=== PATIENT | male | born 1945 | race Caucasian/White ===

== ENCOUNTER 2017-06-26 11:26 | Day surgery (SDC) | payer OTHER ==
[2017-06-25 10:41] VITALS: BMI 27.9
[2017-06-26 12:50] LABS: Hemoglobin 15.9 g/dL (14.0-18.0)
[2017-06-26 13:04] LABS: Anion Gap 11 mmol/L (10-20); BUN (Urea Nitrogen) 18 mg/dL (8.4-25.7); Calc. Creatinine Clearance 86 mL/min (70-130); Calcium 10.1 mg/dL (7.8-10.44); Carbon Dioxide 28 mmol/L (23-31); Chloride 105 mmol/L (98-107); Estimated GFR-MDRD 66; Glucose 98 mg/dL (80-115); Potassium 4.3 mmol/L (3.5-5.1); Sodium 140 mmol/L (136-145)
[2017-06-26] MEDS ORDERED: Bacitracin Zinc Ointment 30 gm TUBE ONE (14:27)
[2017-06-26] MEDS ORDERED: Oxymetazoline HCl 0.05% ( 15 ML ) ONE (14:27)
[2017-06-26] MEDS ORDERED: Lidocaine 1% w/Epinephrine 1:200K 30 ML VIAL ONE (14:27)
--- NOTE | 2017-06-27 13:34 | OP ---
PREOPERATIVE DIAGNOSES: Profound septal deformity, hypertrophic inferior turbinates. POSTOPERATIVE DIAGNOSES: Profound septal deformity, hypertrophic inferior turbinates. PROCEDURES PERFORMED: 1. Septoplasty. 2. Bilateral nasal endoscopy with submucosal resection of inferior turbinates. PROCEDURE IN DETAIL: After consent was obtained, the patient was identified, brought to the operatin g room, and placed on the operating room table in the supine position. Consent was obtained, notifyi ng the patient of the possibility of additional infections, bleeding, brain injury, and eye/orbital i njury. The patient was placed on the operating room table, and general endotracheal anesthesia and intravenous access was obtained. The patient was then positioned, prepped and draped for endoscopic sinus surgery. Nasal preparation included trimming nasal vestibular hairs and spraying in topical Af rin. We then placed Afrin topical solution on nasal pledgets and strategically located them intranas ally. The perinasal mucosa was injected with 1% lidocaine with 1:100,000 epinephrine in the submucop erichondrial plane of the septum, lateral nasal wall, and anterior to the uncinate. The patient was then prepped and draped in a sterile fashion and positioned for endoscopic sinus surgery. (Outfracture of the Inferior Turbinates) The inferior turbinates were visualized under endoscopic visualization and outfractured with the elev ator. The inferolateral edge of the inferior turbinate was then cauterized along its length with the suction cautery without difficulty. (Outfracture & Cautery of the Inferior Turbinates) The inferior turbinates were visualized with a 0-degree endoscope and outfractured with a [place] eleva tor. The inferior medial aspect was cauterized with the electrocautery. Hemostasis was obtained . After adequate airway was established, we turned our attention to the contralateral side and used a s imilar procedure. Again, a [place] elevator was used to outfracture inferior turbinates under endoscop ic visualization. With a suction cautery, the free inferior medial aspect was cauterized under direc t visualization along the length of the inferior turbinate. (Septoplasty) After local anesthesia was infiltrated into the submucoperichondrial plane, a standard [place] incisi on was made with a #15 blade down to the level of the septal cartilage. The caudal elevator was used to elevate the mucoperichondrium from the underlying cartilage. We then proceeded beyond the bony c artilaginous junction and elevated the bony periosteum as well. Great attention was paid to the spur to prevent rent formation in the septal flap. A transcartilaginous incision was then made, while pre serving an adequate dorsal and caudal cartilaginous strut for tip support. The deformed cartilage wa s removed and disarticulated from the bony cartilaginous junction and maxillary crest. This was plac ed in saline and would later be crushed and returned to the mucoperichondrial envelope. We then elev ated the contralateral periosteum from the bony cartilaginous region and removed the deformed portion s of the bone and bony spurs. The cartilage was then crushed and placed back into the mucoperichondr ial envelope and the mucosa was re-approximated with a quilting stitch composed of rapidly absorbent gut suture. The [place] incision was also closed with interrupted gut suture. At the completion of the case, [place] splints were placed and suture secured to the caudal septum. At this point, we then turned our attention to the contralateral side and proceeded with endoscopic s inus surgery. At the completion of the case, [place] keel splints were placed in the ethmoid cavities after the ethmoi dectomy. There were no complications. The patient tolerated the procedure well and was discharged t o the recovery room in stable condition prior to return to the preoperative Day Stay with [facility]. Prescriptions for pain medication and antibiotics were provided. The patient received intramuscular Depo-Medrol during the case.
--- NOTE | 2017-08-30 13:58 | EKG ---
Test Reason : PREOP Blood Pressure : / mmHG Vent. Rate : 059 BPM Atrial Rate : 059 BPM P-R Int : 200 ms QRS Dur : 094 ms QT Int : 426 ms P-R-T Axes : 046 069 031 degrees QTc Int : 421 ms Sinus bradycardia Otherwise normal ECG When compared with ECG of 26-DEC-2015 15:55, No significant change was found Confirmed by JORJE CHAKRABORTY MD ([id number] on 08/30/2017 1:57:46 PM Referred By: ALYSON Confirmed By:JORJE CHAKRABORTY MD
== END 2017-06-26 15:45 | disposition home or self-care (01) ==
LOC: SDC 11:26
PROVIDERS: ATTEND Specialist
PROC: 09BL8ZZ Excision of Nasal Turbinate, Via Natural or Artificial Opening Endoscopic (ICD-10-PCS; principal; 2017-06-26)
PROC: 09RM07Z Replacement of Nasal Septum with Autologous Tissue Substitute, Open Approach (ICD-10-PCS; principal; 2017-06-26)
DX: J34.2 Deviated nasal septum (principal); J34.3 Hypertrophy of nasal turbinates; J34.89 Other specified disorders of nose and nasal sinuses; I10 Essential (primary) hypertension; Z79.82 Long term (current) use of aspirin; Z79.899 Other long term (current) drug therapy; Z90.49 Acquired absence of other specified parts of digestive tract; Z98.890 Other specified postprocedural states
CPT/HCPCS: 80048; 85014; 85018; 93005; 93010; J3490

== ENCOUNTER 2017-07-10 10:49 | Day surgery (SDC) | payer OTHER ==
[2017-07-09 10:48] VITALS: BMI 27.9
[~2017-07-10 10:49] MED LIST: Dexamethasone 20 MG/5 ML VIAL ONE; Glycopyrrolate 0.2 MG/ML 5 ML SYRINGE ONE; Ondansetron PF 4 MG/2 ML Vial ONE; PROPOFOL 200 MG/20 ML VIAL ONE
[2017-07-10] MEDS ORDERED: Oxymetazoline HCl 0.05% ( 15 ML ) ONE ×2 (14:13→16:36)
[2017-07-10] MEDS ORDERED: Bacitracin Zinc Ointment 30 gm TUBE ONE (16:36)
[2017-07-10] MEDS ORDERED: Fentanyl 250 MCG/5 ML VIAL ONE (16:36)
[2017-07-10] MEDS ORDERED: Lidocaine 1% w/Epinephrine 1:200K 30 ML VIAL ONE (16:36)
[2017-07-10] MEDS ORDERED: Fentanyl 100 MCG/2 ML VIAL ONE (18:00)
[2017-07-10] MEDS ORDERED: Hydrocodone-Acetamin 15 ML UDCUP ONE (18:34)
--- NOTE | 2017-07-10 22:19 | OP ---
PREOPERATIVE DIAGNOSES: Deviated septum, hypertrophic inferior turbinates. POSTOPERATIVE DIAGNOSES: Deviated septum, hypertrophic inferior turbinates. PROCEDURES PERFORMED: 1. Septoplasty. 2. Bilateral nasal endoscopy with submucosal resection of inferior turbinates. PROCEDURE IN DETAIL: After consent was obtained, the patient was identified, brought to the operatin g room, and placed on the operating room table in the supine position. Consent was obtained, notifyi ng the patient of the possibility of additional infections, bleeding, brain injury, and eye/orbital i njury. The patient was placed on the operating room table, and general endotracheal anesthesia and intravenous access was obtained. The patient was then positioned, prepped and draped for endoscopic sinus surgery. Nasal preparation included trimming nasal vestibular hairs and spraying in topical Af rin. We then placed Afrin topical solution on nasal pledgets and strategically located them intranas ally. The perinasal mucosa was injected with 1% lidocaine with 1:100,000 epinephrine in the submucop erichondrial plane of the septum, lateral nasal wall, and anterior to the uncinate. The patient was then prepped and draped in a sterile fashion and positioned for endoscopic sinus surgery. Septoplasty: After local anesthesia was infiltrated into the submucoperichondrial plane, a standard [place] incision was made with a #15 blade down to the level of the septal cartilage. The caudal dean vator was used to elevate the mucoperichondrium from the underlying cartilage. We then proceeded bey ond the bony cartilaginous junction and elevated the bony periosteum as well. Great attention was pa id to the spur to prevent rent formation in the septal flap. A transcartilaginous incision was then m samuel, while preserving an adequate dorsal and caudal cartilaginous strut for tip support. The deforme d cartilage was removed and disarticulated from the bony cartilaginous junction and maxillary crest. This was placed in saline and would later be crushed and returned to the mucoperichondrial envelope. We then elevated the contralateral periosteum from the bony cartilaginous region and removed the de formed portions of the bone and bony spurs. The cartilage was then crushed and placed back into the mucoperichondrial envelope and the mucosa was re-approximated with a quilting stitch composed of rapi dly absorbent gut suture. The [place] incision was also closed with interrupted gut suture. At the completion of the case, [place] splints were placed and suture secured to the caudal septum. Bilateral nasal endoscopy with submucosal resection of inferior turbinates: With the 0-degree endosc ope, the patient underwent systematic nasal endoscopy. There were no suspicious internasal masses or lesions identified. We then focused our attention to the osteomeatal complex region under the middl e turbinate. The inferior turbinates were visualized under endoscopic visualization and outfractured with the elev ator. The inferolateral edge of the inferior turbinate was then cauterized along its length with the suction cautery without difficulty. The inferior turbinates were visualized with a 0-degree endoscope and outfractured with a [place] eleva tor. The inferior medial aspect was cauterized with the electrocautery. Hemostasis was obtained . After adequate airway was established, we turned our attention to the contralateral side and used a s imilar procedure. Again, a [place] elevator was used to outfracture inferior turbinates under endoscop ic visualization. With a suction cautery, the free inferior medial aspect was cauterized under direc t visualization along the length of the inferior turbinate. At this point, we then turned our attention to the contralateral side and proceeded with endoscopic s inus surgery. At the completion of the case, [place] keel splints were placed in the ethmoid cavities after the ethmoi dectomy. There were no complications. The patient tolerated the procedure well and was discharged t o the recovery room in stable condition prior to return to the preoperative Day Stay with [facility]. Prescriptions for pain medication and antibiotics were provided. The patient received intramuscular Depo-Medrol during the case. FINDINGS: Profound septal deformity and hypertrophic turbinates.
== END 2017-07-10 19:40 | disposition home or self-care (01) ==
LOC: SDC 10:49
PROVIDERS: ATTEND Specialist
PROC: 09RM07Z Replacement of Nasal Septum with Autologous Tissue Substitute, Open Approach (ICD-10-PCS; principal; 2017-07-10)
PROC: 09TL8ZZ Resection of Nasal Turbinate, Via Natural or Artificial Opening Endoscopic (ICD-10-PCS; principal; 2017-07-10)
DX: J34.2 Deviated nasal septum (principal); J34.3 Hypertrophy of nasal turbinates; J34.89 Other specified disorders of nose and nasal sinuses; I10 Essential (primary) hypertension; Z79.82 Long term (current) use of aspirin; Z79.899 Other long term (current) drug therapy
CPT/HCPCS: 96374; J1100; J2405; J2704; J3010

== ENCOUNTER 2017-12-21 00:11 | Observation (INO) | payer MEDICARE, OTHER ==
[2017-12-21] MEDS ORDERED: Nitroglycerin 2% Ointment 1 INCH/1 GM Packet ONE (01:03)
[2017-12-21 01:08] LABS: #Basophils 0.1 thou/uL (0.0-0.2); #Eosinphils 0.3 thou/uL (0.0-0.7); #Lymphocytes 1.7 thou/uL (1.20-3.40); #Monocytes 0.7 thou/uL (0.11-0.59); #Neutrophils 4.3 thou/uL (1.40-6.50); %Basophils 1.1 % (0.0-1.0); %Eosinophils 4.6 % (0.0-10.0); %Monocytes 9.3 % (0.0-10.0); %Neutrophils 60.9 % (42.0-75.0); Hemoglobin 13.8 g/dL (14.0-18.0); Mean Corpuscular HGB CONC 34.7 g/dL (32.0-36.0); Mean Corpuscular Hemoglobin 29.6 pg (27.0-31.0); Mean Corpuscular Volume 85.4 fL (78.0-98.0); Platelet Count 210 thou/uL (130-400); RBC Distribution Width 12.1 % (11.5-14.5); Red Blood Cell (RBC) Count 4.65 mill/uL (4.70-6.10)
[2017-12-21 01:28] LABS: ALT (SGPT) 27 U/L (8-55); AST (SGOT) 19 U/L (5-34); Albumin 4.1 g/dL (3.4-4.8); Alkaline Phosphatase 77 U/L (40-150); Anion Gap 15 mmol/L (10-20); BUN (Urea Nitrogen) 18 mg/dL (8.4-25.7); Bilirubin, Total 0.9 mg/dL (0.2-1.2); CK (CPK) 67 U/L (30-200); Calc. Creatinine Clearance 0 mL/min (70-130); Calcium 9.6 mg/dL (7.8-10.44); Carbon Dioxide 23 mmol/L (23-31); Chloride 108 mmol/L (98-107); Estimated GFR-MDRD 66; Globulin 2.6 g/dL (2.4-3.5); Glucose 130 mg/dL (80-115); Potassium 3.8 mmol/L (3.5-5.1); Protein, Total 6.7 g/dL (5.8-8.1); Sodium 142 mmol/L (136-145)
[2017-12-21 01:31] LABS: CKMB 2.6 ng/mL (0-6.6); Troponin I Less than 0.010 ng/mL (< 0.028)
[2017-12-21] MEDS ORDERED: Acetaminophen 325 MG TAB PO PRN ×2 (03:50→08:14)
[2017-12-21] MEDS ORDERED: Ondansetron ODT 4 MG TAB SL PRN (03:50)
[2017-12-21] MEDS ORDERED: Ondansetron HCl/PF 4 MG/2 ML Vial IVP PRN (03:50)
[2017-12-21 04:12] VITALS: BMI 28.3
[2017-12-21 05:03] LABS: Troponin I 0.026 ng/mL (< 0.028)
[2017-12-21 07:49] LABS: Troponin I Less than 0.010 ng/mL (< 0.028)
[2017-12-21] MEDS ORDERED: Nitroglycerin 0.4 MG TAB (25 Tab Bottle) PO PRN (08:14)
[2017-12-21] MEDS ORDERED: Bisacodyl 5 MG TAB PO PRN (08:14)
[2017-12-21 08:40] VITALS: TEMP 97.5
[2017-12-21] MEDS ORDERED: Amlodipine 5 MG TAB PO SCH (09:00)
--- NOTE | 2017-12-21 11:08 | RAD ---
PORTABLE CHEST 1 VIEW: DATE: 12/21/17. TIME: 1:07 a.m. HISTORY: Chest pain. FINDINGS: Comparison is made with the exam of 12/16/15. The heart size is normal. The aorta is tortuous. The lungs are expanded without focal areas of cons olidation, pneumothorax, or pleural effusions. IMPRESSION: No acute process. POS: [facility]
[2017-12-21 11:16] VITALS: BP 154/74
--- NOTE | 2017-12-21 12:21 | CT ---
CT PULMONARY ANGIOGRAM WITH IV COTNRAST AND 3D POSTPROCESSING: HISTORY: Chest pain and hypertension. FINDINGS: There is good contrast opacification of the pulmonary arterial vasculature without filling defects to suggest pulmonary embolism. No thoracic aortic aneurysm or dissection is seen. No pleural or peric ardial effusions are identified. No pneumothoraces, focal areas of consolidation, or lung masses are identified. There are degenerative changes in the spine. There is a 4 mm parenchymal nodule in the left lower lobe. A few lung cysts are seen in the right lower lobe. IMPRESSION: 1. No CT evidence of pulmonary embolism. 2. A 4 mm left lower lobe lung nodule. A followup with LDCT is recommended in 12 months. CODE T POS: [facility]
[2017-12-21] MEDS ORDERED: ISOVUE-370 76%-LOCM 1 ML ONE (15:03)
--- NOTE | 2017-12-21 15:08 | SS ---
DATE OF ADMISSION: 12/21/2017 DATE OF DISCHARGE: 12/21/2017 PRIMARY CARE PROVIDER, Dr. Devyn Brooks. CHIEF COMPLAINT: Chest pain. SUBJECTIVE: Mr. Partida is a pleasant 72-year-old gentleman who was seen at [facility] on 12/21/2017. HISTORY OF PRESENT ILLNESS: He reports that he went to bed around 10:30 p.m. yesterday. Around 10:50 p.m. he developed pain in his chest. He describes it as retrosternal, tightness like, nonradiating, 10/10 at its worst, accompanied by shortness of breath, not accompanied by diaphoresis or lightheadedness. It was radiating to his left shoulder. EMS was called. He was found to have systolic blood pressure of 116. He was administered nitrates, with some relief. Prior to EMS arrival, his blood pressure was reported at 225/101. He reports that he has been having a difficult time keeping his blood pressure under control. He mainly reports the blood pressures spikes. He has undergone workup to rule out adrenal causes, according to the patient. Currently, he is chest pain free. REVIEW OF SYSTEMS: All other systems reviewed and found to be negative. PAST MEDICAL HISTORY: Hypertension, gout, gastroesophageal reflux disease, dyslipidemia, hard of hearing. PAST SURGICAL HISTORY: Cardiac catheterization on 12/27/2015, which did not show any significant disease. FAMILY HISTORY: His father from myocardial infarction. SOCIAL HISTORY: The patient denies tobacco use, alcohol use or recreational drug use. CODE STATUS: I discussed his code status. He is FULL CODE. ALLERGIES: No known drug allergies. MEDICATIONS: Amlodipine 5 mg daily, aspirin 81 mg daily, Lipitor 20 mg daily, losartan 50 mg daily, Protonix 40 mg daily. PHYSICAL EXAMINATION: GENERAL: Mr. Partida is awake and alert, not in acute distress. VITAL SIGNS: Blood pressure is 141/74, pulse 56, respiratory rate 18, and oxygen saturation 94% on room air. He is afebrile. EYES: No scleral icterus. No conjunctival pallor. ENT: Moist mucosal membranes, no oropharyngeal erythema or exudates. NECK: Supple, nontender. Trachea is midline. RESPIRATORY: Accessory muscles of breathing are not active. Chest wall movements are symmetric bilaterally. LUNGS: Clear to auscultation without wheeze, rhonchi or crepitations. CARDIOVASCULAR: S1 and S2 are heard, regular. Peripheral pulses palpable. No carotid bruit, no pericardial rub. ABDOMEN: Soft, nontender, bowel sounds are heard, no hepatomegaly. No splenomegaly. NEUROLOGIC: Cranial nerves II-XII intact. Deep tendon reflexes are 2+. MUSCULOSKELETAL: Power is 5/5 in all 4 extremities. SKIN: No rashes or subcutaneous nodules. LYMPHATIC: No cervical lymphadenopathy. PSYCHIATRIC: Normal mood, normal affect. The patient is oriented to person, place, and time. LABORATORY DATA: Mr. Partida' labs and investigations were reviewed. I reviewed his electrocardiogram, which shows sinus bradycardia, no ST changes to suggest an acute coronary syndrome. I also reviewed his chest x-ray, which does not show any pulmonary infiltrates. He has normal white count, normocytic anemia with hemoglobin 13.8, normal platelet count, normal sodium, normal potassium, normal creatinine, normal troponin I x3 and normal LFTs. ASSESSMENT AND PLAN, HOSPITAL COURSE: Mr. Partida is a pleasant 72-year-old gentleman who was seen at [facility] on 12/21/2017. His problem list includes: 1. Chest pain: He was monitored on telemetry. He had CT angiogram of the chest, which did not show any pulmonary embolism. He does have a 4 mm nodule in the left lower lobe. Radiologist recommends follow up CT scan in 12 months. He will be advised to follow up with his primary care provider for the same. 2. Hypertensive urgency: His blood pressures have improved since coming to the hospital. He will be advised to follow up with his primary care provider for management of hypertension. He will be advised to check his blood pressure and heart rate 3 times a day and shows readings to his primary care provider. 3. Dyslipidemia: The patient to continue statin at home. 4. Gastroesophageal reflux disease. The patient to continue PPI at home. He has also been advised to follow up with his pressure tank operator to rule out gastrointestinal causes for chest discomfort. Many thanks for allowing me to participate in your patient's care. Please feel free to contact me with any questions or concerns. LEVEL OF RISK: High. LEVEL OF COMPLEXITY: High. MTDD
--- NOTE | 2017-12-21 15:35 | CON ---
DATE OF CONSULTATION: 12/21/2017 REASON FOR CONSULTATION: Chest pain. HISTORY OF PRESENT ILLNESS: Mr. Uriostegui is a very pleasant 72-year-old white gentleman who comes to [facility] for chest pain. He was at home. He did a lot of weed eating the last couple days and wa s having right and left-sided chest pain. He checked his blood pressure and it was a little higher t pan normal in the 140s, but then he did not feel well. Later that night and checked it again, it was 225/100, so EMS was called. He was given a sublingual nitro and his blood pressure went down to 140 s/80s. He was admitted for rule out. He is a patient of Dr. Meza. He had a heart catheterizat ion back in 12/2015, just 2 years ago in the setting of ongoing episodes of chest pain with normal st ress as he was found to have no significant coronary artery disease. PAST MEDICAL HISTORY: 1. Hypertension. 2. Gout. 3. Normal coronaries 2 years ago. PAST SURGICAL HISTORY: None. SOCIAL HISTORY: No alcohol, tobacco or drugs. OUTPATIENT MEDICATIONS: 1. Amlodipine 5 mg a day. 2. Pantoprazole 40 mg a day. 3. Losartan 50 mg q.p.m. 4. Atorvastatin 10 mg q.p.m. 5. Aspirin 81 a day. ALLERGIES: No known drug allergies. REVIEW OF SYSTEMS: Twelve point review of systems was done and is all negative unless stated in the history of present illness. PHYSICAL EXAMINATION: VITAL SIGNS: Temperature 97.5, pulse 56, respiration rate 18, satting 94% on room air, blood pressur e 141/74. GENERAL: Awake, alert, oriented x3, in no distress. HEENT: Normocephalic, atraumatic. NECK: Supple. LUNGS: Clear. CARDIOVASCULAR: S1, S2, no S3, S4, no murmurs or rubs. ABDOMEN: Soft, otherwise. EXTREMITIES: No edema. SKIN: Warm and dry. LABORATORY WORK: Reviewed. Troponin is negative x3. CBC and CMP are unremarkable. ASSESSMENT AND PLAN: 1. Hypertension emergency. Blood pressure better controlled. We will provide with p.r.n. hydralazi ne in case his blood pressure above 170, but his blood pressure at home is actually in the most of e time. 2. Chest pain: Most likely related to high blood pressure versus just doing all the weed eating rec ently and that this be musculoskeletal chest. He had a negative catheterization 2 years ago and has negative troponins. EKG is unremarkable as well Reassurance. 3. Hypertension: controlled at home on current regimen. No changes for now except for p.r.n. hydra lazine for SBP above 170. Thank you for letting us participate in the care of your patient. We will sign off. Please call [facility] any question.
[2017-12-21] MEDS ORDERED: Atorvastatin Calcium 20 MG TAB PO SCH (21:00)
[2017-12-21] MEDS ORDERED: Losartan 25 MG TAB PO SCH (21:00)
== END 2017-12-21 15:04 | disposition home or self-care (01) ==
LOC: ERS 00:11 → 2SW 03:32
PROVIDERS: ADMIT Internal Medicine; ATTEND Internal Medicine
DX: R07.2 Precordial pain (principal); I16.0 Hypertensive urgency; I16.1 Hypertensive emergency; I10 Essential (primary) hypertension; M10.9 Gout, unspecified; K21.9 Gastro-esophageal reflux disease without esophagitis; E78.5 Hyperlipidemia, unspecified; Z79.82 Long term (current) use of aspirin; Z79.899 Other long term (current) drug therapy
CPT/HCPCS: 36415; 71045; 71275; 80053; 82553; 84484; 85025; 93005; 94760; G0378

== ENCOUNTER 2025-01-30 11:21 | Observation (INO) | payer MEDICARE, OTHER ==
[~2025-01-30 11:21] MED LIST changes: -Dexamethasone 20 MG/5 ML VIAL ONE; -Glycopyrrolate 0.2 MG/ML 5 ML SYRINGE ONE; +Iopamidol-370 76% 500 ML MDV (1 ML CHARGE) ONE; -Ondansetron PF 4 MG/2 ML Vial ONE; -PROPOFOL 200 MG/20 ML VIAL ONE
[2025-01-30 11:56] LABS: #Basophils 0.04 10x3/uL (0.0-0.2); #Eosinophils 0.34 10x3/uL (0.0-0.7); #Monocytes 0.59 10x3/uL (0.11-0.59); #Neutrophils 5.15 10x3/uL (1.40-6.50); %Basophils 0.5 % (0.0-1.0); %Eosinophils 4.1 % (0.0-10.0); %Lymphocytes 26.2 % (21.0-51.0); %Monocytes 7.1 % (0.0-10.0); %Neutrophils 61.6 % (42.0-75.0); Hematocrit 43.9 % (42.0-52.0); Hemoglobin 14.7 g/dL (14.0-18.0); Mean Corpuscular Hemoglobin 28.2 pg (27.0-31.0); Mean Corpuscular Volume 84.3 fL (78.0-98.0); Platelet Count 242 10x3/uL (130-400); Red Blood Cell (RBC) Count 5.21 mill/uL (4.70-6.10); White Blood Cell (WBC) Count 8.35 10x3/uL (4.8-10.8)
[2025-01-30] MEDS ORDERED: Aspirin Chewable 81 MG TAB ONE (11:57)
[2025-01-30 12:29] LABS: ALT (SGPT) 24 U/L (Less than 45); AST (SGOT) 25 U/L (11-34); Albumin 4.0 g/dL (3.1-4.5); Alkaline Phosphatase 72 U/L (40-110); Anion Gap 13 mmol/L (10-20); BUN (Urea Nitrogen) 18 mg/dL (8.4-25.7); Bilirubin, Total 1.1 mg/dL (0.3-1.2); Calc. Creatinine Clearance 0 mL/min (70-130); Calcium 9.1 mg/dL (7.8-10.44); Carbon Dioxide 21 mmol/L (23-31); Chloride 109 mmol/L (98-107); Globulin 2.9 g/dL (2.4-3.5); Glucose 101 mg/dL (83-110); Lipase 20 U/L (8-78); Potassium 3.9 mmol/L (3.5-5.1); Sodium 139 mmol/L (136-145)
[2025-01-30 16:17] VITALS: BMI 28.9
[2025-01-30] MEDS ORDERED: Ondansetron PF 4 MG/2 ML Vial IVP PRN (16:45)
[2025-01-30] MEDS ORDERED: Melatonin 3 MG TAB PO PRN (16:45)
[2025-01-30] MEDS ORDERED: Electrolyte Replacement Protocol 1 EACH FS PRN (16:45)
[2025-01-30] MEDS ORDERED: Nitroglycerin 0.4 MG TAB (25 Tab Bottle) SL PRN (16:45)
[2025-01-30] MEDS ORDERED: Senokot S 8.6-50 MG TAB PO PRN (16:45)
[2025-01-30 17:33] LABS: Magnesium 2.2 mg/dL (1.6-2.6)
[2025-01-30] MEDS: Acetaminophen 325 MG TAB PO SCH (19:26)
[2025-01-30] MEDS: Losartan 25 MG TAB PO SCH (19:29)
[2025-01-30] MEDS: Aspirin Chewable 81 MG TAB PO SCH (19:31)
[2025-01-31 07:23] LABS: #Basophils 0.05 10x3/uL (0.0-0.2); #Eosinophils 0.39 10x3/uL (0.0-0.7); #Monocytes 0.53 10x3/uL (0.11-0.59); #Neutrophils 3.05 10x3/uL (1.40-6.50); %Basophils 0.8 % (0.0-1.0); %Eosinophils 6.1 % (0.0-10.0); %Lymphocytes 36.6 % (21.0-51.0); %Monocytes 8.3 % (0.0-10.0); %Neutrophils 47.9 % (42.0-75.0); Hematocrit 43.2 % (42.0-52.0); Hemoglobin 13.9 g/dL (14.0-18.0); Mean Corpuscular Hemoglobin 27.8 pg (27.0-31.0); Mean Corpuscular Volume 86.4 fL (78.0-98.0); Platelet Count 220 10x3/uL (130-400); Red Blood Cell (RBC) Count 5.00 mill/uL (4.70-6.10); White Blood Cell (WBC) Count 6.37 10x3/uL (4.8-10.8)
[2025-01-31 07:44] LABS: ALT (SGPT) 22 U/L (Less than 45); AST (SGOT) 20 U/L (11-34); Albumin 3.8 g/dL (3.1-4.5); Alkaline Phosphatase 67 U/L (40-110); Anion Gap 12 mmol/L (10-20); BUN (Urea Nitrogen) 16 mg/dL (8.4-25.7); Bilirubin, Total 1.2 mg/dL (0.3-1.2); Calc. Creatinine Clearance 86 mL/min (70-130); Calcium 9.0 mg/dL (7.8-10.44); Carbon Dioxide 23 mmol/L (23-31); Cardiac Risk 5.7 (Less than 4.5); Chloride 110 mmol/L (98-107); Cholesterol 137 mg/dl (< 200 Desired); Globulin 2.5 g/dL (2.4-3.5); Glucose 98 mg/dL (83-110); HDL Cholesterol 24 mg/dL (>60 Neg Risk); LDL Cholesterol, Calculated 88 mg/dL; Magnesium 2.1 mg/dL (1.6-2.6); Potassium 3.7 mmol/L (3.5-5.1); Sodium 141 mmol/L (136-145); Triglycerides 125 mg/dL (Less than 150)
[2025-01-31] MEDS: Pantoprazole 40 MG DR.TAB PO SCH (10:33)
[2025-01-31] MEDS: Enoxaparin 40 MG (0.4 mL) SYRINGE SC SCH (12:52)
[2025-01-31 14:20] VITALS: BP 135/73; TEMP 97.6
== END 2025-01-31 15:09 | disposition home or self-care (01) ==
LOC: ERS 11:21 → ERHOLD 13:25 → OBS 16:13
PROVIDERS: ADMIT Internal Medicine; ATTEND Internal Medicine
DX: R07.89 Other chest pain (principal); R42 Dizziness and giddiness; R55 Syncope and collapse; R06.02 Shortness of breath; I25.10 Atherosclerotic heart disease of native coronary artery without angina pectoris; I12.9 Hypertensive chronic kidney disease with stage 1 through stage 4 chronic kidney disease, or unspecified chronic kidney disease; N18.2 Chronic kidney disease, stage 2 (mild); D63.1 Anemia in chronic kidney disease; K21.9 Gastro-esophageal reflux disease without esophagitis; E78.5 Hyperlipidemia, unspecified; Z98.49 Cataract extraction status, unspecified eye; Z90.49 Acquired absence of other specified parts of digestive tract; Z79.85 Long-term (current) use of injectable non-insulin antidiabetic drugs; Z79.82 Long term (current) use of aspirin; Z79.899 Other long term (current) drug therapy
CPT/HCPCS: 71045; 71275; 78452; 80053; 80061; 83036; 83690; 83735 ×2; 83880; 84484 ×2; 85025; 93005 ×2; 93017; 93306; 94760; 96372; 99285; A9502; G0378 ×3; J1650; J2785 ×2; Q9967; 36415; 84443; 93010